=== PATIENT | female | born 1955 | race African-American/Black ===

== ENCOUNTER 2017-10-13 12:40 | Outpatient (CLI) | payer OTHER ==
--- NOTE | 2017-10-23 14:08 | MMO ---
BILATERAL SCREENING MAMMOGRAM: Date: 10/13/17 HISTORY: Screening. COMPARISON: Mammograms from 2017 and 2014. TECHNIQUE: Bilateral screening CC and MLO mammograms. This patient's mammogram was interpreted with the assistance of computer-aided detection. FINDINGS: No suspicious mass, architectural distortion, or microcalcifications. Benign calcifications. IMPRESSION: BIRADS 2: Benign Finding(s) Continued annual mammographic screening is recommended. POS: DESIREE
== END 2017-10-13 12:41 | disposition home or self-care (01) ==
LOC: SCSMAMMO 12:40
PROVIDERS: ATTEND Family Medicine
DX: Z12.31 Encounter for screening mammogram for malignant neoplasm of breast (principal)
CPT/HCPCS: 77067

== ENCOUNTER → 2018-01-14 | Day surgery (SDC) | payer OTHER ==
[2018-01-13 09:21] VITALS: BMI 41.3
[~2018-01-14] MED LIST: CEFAZOLIN/Water 2 GM/20 ML SYRINGE ONE; Dexamethasone 20 MG/5 ML VIAL ONE; Fentanyl 100 MCG/2 ML VIAL IV PRN; Fentanyl 100 MCG/2 ML VIAL ONE; HYDROcodone/Acetaminophen 7.5/325 mg Tablet PO PRN; Lidocaine 1% (PF) 30 ML VIAL ONE; Midazolam HCl 2 mg/2 ml Vial ONE; Ondansetron HCl/PF 4 MG/2 ML Vial IVP PRN; Ondansetron HCl/PF 4 MG/2 ML Vial ONE; PHENYLEPHRINE-NS 100 MCG/ML 10 ML SYRINGE ONE; PROPOFOL 200 MG/20 ML VIAL ONE; Promethazine HCl 25 MG/ML VIAL IM PRN; Promethazine HCl 25 MG/ML VIAL ONE; Ropivacaine HCl/PF 1,100 MG in Sodium Chloride 0.9% 440 ML NERVE BLCK SCH; Zolpidem Tartrate 5 MG TAB PO PRN; traMADol HCl 50 MG TAB PO PRN
[2018-01-14 08:17] LABS: #Basophils 0.1 thou/uL (0.0-0.2); #Eosinphils 0.2 thou/uL (0.0-0.7); #Lymphocytes 1.6 thou/uL (1.20-3.40); #Monocytes 0.5 thou/uL (0.11-0.59); #Neutrophils 4.2 thou/uL (1.40-6.50); %Basophils 0.8 % (0.0-1.0); %Eosinophils 3.4 % (0.0-10.0); %Lymphocytes 24.2 % (21.0-51.0); %Monocytes 7.6 % (0.0-10.0); %Neutrophils 64.1 % (42.0-75.0); Hemoglobin 11.9 g/dL (12.0-16.0); Mean Corpuscular HGB CONC 33.3 g/dL (32.0-36.0); Mean Corpuscular Hemoglobin 30.8 pg (27.0-31.0); Mean Corpuscular Volume 92.6 fl (81.0-99.0); Mean Platelet Volume 7.7 fL (7.4-10.4); Platelet Count 285 thou/uL (130-400); RBC Distribution Width 11.6 % (11.5-14.5); Red Blood Cell (RBC) Count 3.86 mill/uL (4.20-5.40); White Blood Cell (WBC) Count 6.6 thou/uL (4.8-10.8)
[2018-01-14 08:28] LABS: Anion Gap 7 mmol/L (10-20); BUN (Urea Nitrogen) 16 mg/dL (9.8-20.1); Calc. Creatinine Clearance 123 mL/min (70-130); Calcium 9.2 mg/dL (7.8-10.44); Carbon Dioxide 30 mmol/L (23-31); Chloride 105 mmol/L (98-107); Estimated GFR-MDRD 87; Glucose 108 mg/dL (80-115); Potassium 4.1 mmol/L (3.5-5.1); Sodium 138 mmol/L (136-145)
--- NOTE | 2018-01-14 11:53 | OP ---
DATE OF OPERATION: 01/14/2018 OPERATION: Open reduction and internal fixation of right distal radius fracture. PREOPERATIVE DIAGNOSIS: Right comminuted and displaced distal radius fracture. POSTOPERATIVE DIAGNOSIS: Right comminuted and displaced distal radius fracture. COMPLICATIONS: None. ESTIMATED BLOOD LOSS: Minimal. SURGEON: Jean Carlos Juárez M.D. ANESTHESIA: General plus regional. PLANT QUALITY MANAGER: Juan Griffith PA-C. IMPLANTS: Synthes variable angle distal radius plate with multiple locking and nonlocking screws. INDICATIONS: Ms. Lopez is a 62-year-old female who fractured her right distal radius. She fell d isplacing her radius significantly. She was indicated for open reduction and internal fixation to re store anatomic alignment of the radius and restore function of the wrist. Risks have been reviewed i n detail and she has elected to proceed. DESCRIPTION OF PROCEDURE: Ms. Lopez was identified in the preoperative holding area. Her correct extremity was marked. She was carried to the operating room. She was positioned supine. General a nesthesia was induced. A multidisciplinary timeout was performed. The right upper extremity was pre pped and draped in sterile fashion. We began the procedure with opening the volar aspect of the wrist. We performed an FCR approach to t he radius. We opened the FCR tendon sheath and then opened the deep aspect of the sheath. We retrac zandra the tendon. At this point, we evaluated the pronator quadratus muscle. Muscle was elevated from the distal radius bone. At this point, we exposed the underlying fracture. We then used a [place] el evator to reduce the fracture into its anatomic position. At this point, we applied a Synthes distal radius plate. We took x-ray images confirming plate placement. We placed multiple locking and nonl ocking screws, taking x-ray images throughout this procedure. Once we had all hardware placed, we to ok final images. We then thoroughly irrigated with copious lavage. We then closed in layers appropr iately and placed a well-padded splint. The patient was taken to the recovery room in good condition without complication at this point.
--- NOTE | 2018-01-14 13:27 | RAD ---
RADIOGRAPH RIGHT FOREARM 3 VIEWS: DTAE: 01/14/18. HISTORY: A 62-year-old female with fracture of the distal radius. TECHNIQUE: These are actually 3 views of the wrist, rather than the forearm as entered into the system. These a re fluoroscopic spot images obtained in the OR. COMPARISON: 01/07/18. FINDINGS: The previously demonstrated dorsal angulation of the distal radial fragment has been reduced, and the alignment is now nearly anatomical. There has been interval placement of a volar metallic plate ext ending from the distal diaphysis to the distal epiphysis, fixated to the radius by multiple screws. IMPRESSION: Status post open reduction internal fixation of the distal radial Colles fracture. POS: OFF
--- NOTE | 2018-01-14 20:33 | EKG ---
Test Reason : PREOP Blood Pressure : / mmHG Vent. Rate : 066 BPM Atrial Rate : 066 BPM P-R Int : 152 ms QRS Dur : 076 ms QT Int : 400 ms P-R-T Axes : 059 008 020 degrees QTc Int : 419 ms Normal sinus rhythm Normal ECG No previous ECGs available Confirmed by [facility], DR. Castellanos ([id number]) on 01/14/2018 8:33:29 PM Referred By: BORIS Confirmed By:DR. Emanuel MATUTE MD
== END ==
LOC: SDC 06:55
PROVIDERS: ATTEND Orthopaedic Surgery
PROC: 0PSH04Z Reposition Right Radius with Internal Fixation Device, Open Approach (ICD-10-PCS; principal; 2018-01-14)
DX: S52.501A Unspecified fracture of the lower end of right radius, initial encounter for closed fracture (principal); E78.5 Hyperlipidemia, unspecified; E03.9 Hypothyroidism, unspecified; Z88.5 Allergy status to narcotic agent
CPT/HCPCS: 36415; 76000; 80048; 85025; 93005; 93010; 96374; C1713; J2001; J2250; J2550; J3010; J7050

== ENCOUNTER 2018-10-14 10:41 | Outpatient (CLI) | payer MEDICARE ==
--- NOTE | 2018-10-14 12:20 | MMO ---
BILATERAL MAMMOGRAMS: DATE: 10/14/18 HISTORY: Screening mammography. COMPARISON: Multiple exams back to 10/13/17. FINDINGS: Scattered fibroglandular densities and benign-appearing calcifications. No dominant mass or suspiciou s calcifications. The study was evaluated with the assistance of computer-aided detection. IMPRESSION: BIRADS 1: Negative Suggest routine follow-up. POS: DESIREE
== END 2018-10-14 10:42 | disposition home or self-care (01) ==
LOC: SCSMAMMO 10:41
PROVIDERS: ATTEND Family Medicine
DX: Z12.31 Encounter for screening mammogram for malignant neoplasm of breast (principal)
CPT/HCPCS: 77067

== ENCOUNTER 2023-08-11 01:07 | Inpatient (IN) | payer MEDICARE ==
[2023-08-11] MEDS ORDERED: traMADol HCl 50 MG TAB PO PRN (02:30)
[2023-08-11] MEDS ORDERED: Ondansetron ODT 4 MG TAB PO PRN (02:30)
[2023-08-11] MEDS ORDERED: hydrALAZINE 20 MG/ML VIAL SLOW IVP PRN (02:30)
[2023-08-11] MEDS ORDERED: TETANUS, DIPHTHERIA TOX,ADULT (TDVAX) 0.5 ML VIAL IM ONE (02:30)
[2023-08-11] MEDS ORDERED: Acetaminophen 325 MG TAB PO PRN (02:30)
[2023-08-11] MEDS ORDERED: Electrolyte Replacement Protocol FS SCH (02:45)
[2023-08-11] MEDS: Sodium Chloride 0.9% 1,000 ML IV SCH ×2 (04:36→14:59)
[2023-08-11 04:58] VITALS: BMI 37.1
[2023-08-11 05:33] LABS: #Eosinphils 0.1 thou/uL (0.0-0.7); #Monocytes 0.5 thou/uL (0.11-0.59); #Neutrophils 4.5 thou/uL (1.40-6.50); %Basophils 0.5 % (0.0-1.0); %Lymphocytes 13.9 % (21.0-51.0); %Monocytes 8.4 % (0.0-10.0); %Neutrophils 74.7 % (42.0-75.0); Hematocrit 37.5 % (36.0-47.0); Hemoglobin 11.8 g/dL (12.0-16.0); Mean Corpuscular HGB CONC 31.5 g/dL (32.0-36.0); Mean Corpuscular Hemoglobin 28.9 pg (27.0-31.0); Mean Corpuscular Volume 91.9 fl (78.0-98.0); Mean Platelet Volume 9.8 fL (7.4-10.4); Platelet Count 267 10x3/uL (130-400); RBC Distribution Width 12.7 % (11.5-14.5); Red Blood Cell (RBC) Count 4.08 mill/uL (4.20-5.40); White Blood Cell (WBC) Count 6.1 10x3/uL (4.8-10.8)
[2023-08-11 05:55] LABS: Phosphorus 3.1 mg/dL (2.3-4.7)
[2023-08-11 05:56] LABS: Anion Gap 13 mmol/L (10-20); BUN (Urea Nitrogen) 12 mg/dL (9.8-20.1); Calc. Creatinine Clearance 105 mL/min (70-130); Carbon Dioxide 26 mmol/L (23-31); Chloride 104 mmol/L (98-107); Estimated GFR 83; Glucose 102 mg/dL (80-115); Magnesium 1.9 mg/dL (1.6-2.6); Potassium 3.5 mmol/L (3.5-5.1); Sodium 139 mmol/L (136-145)
[2023-08-11] MEDS: Levothyroxine Sodium 88 MCG TAB PO SCH (06:06)
[2023-08-11] MEDS ORDERED: Potassium Chloride 20 MEQ TAB PO SCH (08:00)
[2023-08-11] MEDS ORDERED: Magnesium 2 GM/50 ML(in water) 2 GM in Premix 1 BAG IVPB SCH (08:00)
[2023-08-11] MEDS: Hydrochlorothiazide 25 MG TAB PO SCH (08:22)
[2023-08-12] MEDS: Simvastatin 5 MG TAB PO SCH ×3 (00:20→20:41)
[2023-08-12] MEDS: Sodium Chloride 0.9% 1,000 ML IV SCH ×4 (00:21→23:44)
[2023-08-12] MEDS: Levothyroxine Sodium 88 MCG TAB PO SCH (05:56)
[2023-08-12 07:29] LABS: Bacteria/HPF 2+ HPF (None Seen); Bilirubin Negative (Negative); Blood, Urine Trace (Negative); Clarity Turbid (Clear); Glucose, Urine (Dipstick) Normal (Negative); Ketone, Urine 20 mg/dL (Negative); Leukocyte 500 Leu/uL (Negative); Nitrite Negative (Negative); Protein, Urine (Dipstick) Negative (Neg-Trace); Specific Gravity, Urine 1.018 (1.002-1.036); Urobilinogen Normal mg/dL (Less than 2); WBC/HPF Greater than 50 HPF (0-3); pH, Urine 5.5 (5.0-9.0)
[2023-08-12] MEDS ORDERED: MD-Gastroview 120 ML BOT ONE ×2 (08:10→11:11)
[2023-08-12 08:38] LABS: #Eosinphils 0.1 thou/uL (0.0-0.7); #Monocytes 0.5 thou/uL (0.11-0.59); #Neutrophils 3.5 thou/uL (1.40-6.50); %Basophils 0.4 % (0.0-1.0); %Eosinophils 2.4 % (0.0-10.0); %Monocytes 9.9 % (0.0-10.0); %Neutrophils 71.9 % (42.0-75.0); Hematocrit 33.8 % (36.0-47.0); Hemoglobin 10.7 g/dL (12.0-16.0); Mean Corpuscular HGB CONC 31.7 g/dL (32.0-36.0); Mean Corpuscular Hemoglobin 29.4 pg (27.0-31.0); Mean Corpuscular Volume 92.9 fl (78.0-98.0); Mean Platelet Volume 9.1 fL (7.4-10.4); Platelet Count 258 10x3/uL (130-400); RBC Distribution Width 12.7 % (11.5-14.5); Red Blood Cell (RBC) Count 3.64 mill/uL (4.20-5.40); White Blood Cell (WBC) Count 4.9 10x3/uL (4.8-10.8)
[2023-08-12 08:49] LABS: Anion Gap 12 mmol/L (10-20); BUN (Urea Nitrogen) 9 mg/dL (9.8-20.1); Calc. Creatinine Clearance 110 mL/min (70-130); Calcium 8.8 mg/dL (7.8-10.44); Carbon Dioxide 25 mmol/L (23-31); Chloride 107 mmol/L (98-107); Estimated GFR 87; Glucose 78 mg/dL (80-115); Potassium 3.8 mmol/L (3.5-5.1); Sodium 140 mmol/L (136-145)
[2023-08-12] MEDS: Hydrochlorothiazide 25 MG TAB PO SCH ×2 (11:12→11:40)
[2023-08-12] MEDS: cefTRIAXone\\ROCEPHIN 1 GM in Sodium Chloride 0.9% 100 ML IVPB SCH (11:56)
[2023-08-12] MEDS: Ketorolac Tromethamine 30 MG (1 mL) VIAL IVP SCH ×3 (11:57→23:44)
[2023-08-13] MEDS: Ketorolac Tromethamine 30 MG (1 mL) VIAL IVP SCH ×2 (05:35→19:28)
[2023-08-13] MEDS: Levothyroxine Sodium 88 MCG TAB PO SCH (05:35)
[2023-08-13] MEDS: Sodium Chloride 0.9% 1,000 ML IV SCH ×2 (05:36→17:19)
[2023-08-13] MEDS: cefTRIAXone\\ROCEPHIN 1 GM in Sodium Chloride 0.9% 100 ML IVPB SCH (08:31)
[2023-08-13] MEDS: Hydrochlorothiazide 25 MG TAB PO SCH (08:31)
[2023-08-13] MEDS ORDERED: Pantoprazole 40 MG VIAL IVP SCH (09:00)
[2023-08-13] MEDS ORDERED: GoLYTELY 4,000 ml Bottle PO SCH (13:15)
[2023-08-13] MEDS ORDERED: Ketorolac Tromethamine 30 MG (1 mL) VIAL IVP PRN (18:00)
[2023-08-13] MEDS: Ondansetron PF 4 MG/2 ML Vial IVP PRN (19:59)
[2023-08-13] MEDS: Simvastatin 5 MG TAB PO SCH (20:15)
[2023-08-13] MEDS ORDERED: Morphine 2 MG/ML VIAL SLOW IVP PRN (21:22)
[2023-08-13] MEDS ORDERED: Scopolamine 1 mg/72 hour Patch TD SCH (22:00)
[2023-08-14] MEDS: Levothyroxine Sodium 88 MCG TAB PO SCH (05:10)
[2023-08-14] MEDS: Sodium Chloride 0.9% 1,000 ML IV SCH (05:44)
[2023-08-14] MEDS ORDERED: Acetaminophen 325 MG TAB PO SCH (06:00)
[2023-08-14] MEDS ORDERED: fentaNYL 50 mcg/mL 1 mL Vial SLOW IVP SCH (06:45)
[2023-08-14 07:26] LABS: #Eosinphils 0.1 thou/uL (0.0-0.7); #Monocytes 0.4 thou/uL (0.11-0.59); #Neutrophils 4.5 thou/uL (1.40-6.50); %Basophils 0.5 % (0.0-1.0); %Eosinophils 2.4 % (0.0-10.0); %Monocytes 7.2 % (0.0-10.0); %Neutrophils 77.6 % (42.0-75.0); Hematocrit 36.5 % (36.0-47.0); Hemoglobin 11.6 g/dL (12.0-16.0); Mean Corpuscular HGB CONC 31.8 g/dL (32.0-36.0); Mean Corpuscular Hemoglobin 29.3 pg (27.0-31.0); Mean Corpuscular Volume 92.2 fl (78.0-98.0); Mean Platelet Volume 9.9 fL (7.4-10.4); Platelet Count 304 10x3/uL (130-400); RBC Distribution Width 12.5 % (11.5-14.5); Red Blood Cell (RBC) Count 3.96 mill/uL (4.20-5.40); White Blood Cell (WBC) Count 5.8 10x3/uL (4.8-10.8)
[2023-08-14 07:47] LABS: INR-International Normal Ratio 1.2; PTT 31.4 sec (22.9-36.1); Prothrombin Time 15.5 sec (12.0-14.7)
[2023-08-14 07:52] LABS: Anion Gap 13 mmol/L (10-20); BUN (Urea Nitrogen) 8 mg/dL (9.8-20.1); Calc. Creatinine Clearance 116 mL/min (70-130); Carbon Dioxide 24 mmol/L (23-31); Chloride 104 mmol/L (98-107); Potassium 3.4 mmol/L (3.5-5.1); Sodium 138 mmol/L (136-145)
[2023-08-14 07:53] LABS: Calcium 8.9 mg/dL (7.8-10.44); Estimated GFR 93; Glucose 101 mg/dL (80-115); Magnesium 1.8 mg/dL (1.6-2.6); Phosphorus 2.9 mg/dL (2.3-4.7)
[2023-08-14] MEDS ORDERED: EPINEPHrine 1 MG/ML VIAL ONE (08:48)
[2023-08-14] MEDS ORDERED: Bupivacaine PF 0.5% 30 ML VIAL ONE (08:48)
[2023-08-14] MEDS: cefTRIAXone\\ROCEPHIN 1 GM in Sodium Chloride 0.9% 100 ML IVPB SCH (08:53)
[2023-08-14] MEDS: Hydrochlorothiazide 25 MG TAB PO SCH (08:54)
[2023-08-14] MEDS ORDERED: Ketorolac Tromethamine 30 MG (1 mL) VIAL IVP PRN ×2 (09:21→14:05)
[2023-08-14] MEDS ORDERED: PROPOFOL 20 ML ONE (09:25)
[2023-08-14] MEDS ORDERED: Magnesium 2 GM/50 ML(in water) 2 GM in Premix 1 BAG IVPB SCH ×3 (09:30→16:00)
[2023-08-14] MEDS ORDERED: cefOXitin 2 GM in Sodium Chloride 0.9% 100 ML IVPB SCH (09:30)
[2023-08-14] MEDS ORDERED: Bupivacaine 0.25% HCL 30 ML VIAL ONE (09:43)
[2023-08-14] MEDS ORDERED: Potassium Chloride 20 MEQ in Premix 1 BAG IVPB SCH (10:00)
[2023-08-14] MEDS ORDERED: fentaNYL PF 100 MCG/2 ML SYRINGE ONE ×2 (10:19→11:12)
[2023-08-14] MEDS ORDERED: SUCCINYLCHOLINE/SOD CL,ISO/PF 200 MG/10 ML SYRINGE FS ONE (10:20)
[2023-08-14] MEDS ORDERED: ePHEDrine Sulfate 50 MG/10 ML VIAL ONE (10:20)
[2023-08-14] MEDS ORDERED: Rocuronium Bromide 10 MG/ML (10ML VIAL) ONE (10:42)
[2023-08-14] MEDS ORDERED: Lidocaine 1% PF 5 ML VIAL ONE (10:42)
[2023-08-14] MEDS ORDERED: Dexmedetomidine 200 MCG/2 ML VIAL ONE (11:33)
[2023-08-14] MEDS ORDERED: Ondansetron PF 4 MG/2 ML Vial ONE (12:27)
[2023-08-14] MEDS ORDERED: Dexamethasone 4 mg/ml Vial ONE (12:27)
[2023-08-14] MEDS ORDERED: SUGAMMADEX SODIUM 200 MG/2 ML VIAL ONE (12:29)
[2023-08-14] MEDS ORDERED: HYDROmorphone 2 MG/ML VIAL SLOW IVP PRN (13:37)
[2023-08-14] MEDS ORDERED: Ondansetron HCl/PF 4 MG/2 ML Vial IVP PRN (13:37)
[2023-08-14] MEDS ORDERED: Meperidine HCl/PF 25 MG/ML VIAL SLOW IVP PRN (13:37)
[2023-08-14] MEDS ORDERED: Promethazine HCl 25 MG/ML VIAL IM PRN (13:37)
[2023-08-14] MEDS ORDERED: HYDROmorphone 0.5 MG/0.5 ML SYRINGE ONE (13:54)
[2023-08-14] MEDS ORDERED: fentaNYL 50 mcg/mL 1 mL Vial ONE (14:09)
[2023-08-14] MEDS ORDERED: Ketorolac Tromethamine 30 MG (1 mL) VIAL IVP SCH (14:30)
[2023-08-14] MEDS: Potassium Chloride 20 MEQ in Premix 1 BAG IVPB SCH ×4 (15:32→20:50)
[2023-08-14] MEDS: Ketorolac Tromethamine 30 MG (1 mL) VIAL IVP SCH (20:46)
[2023-08-14] MEDS: Fentanyl 100 MCG/2 ML VIAL SLOW IVP PRN (20:49)
[2023-08-14] MEDS: Ondansetron PF 4 MG/2 ML Vial IVP PRN (20:50)
[2023-08-14] MEDS: Enoxaparin 40 MG (0.4 mL) SYRINGE SC SCH (20:50)
[2023-08-14] MEDS: Simvastatin 5 MG TAB PO SCH (21:46)
[2023-08-15] MEDS: Fentanyl 100 MCG/2 ML VIAL SLOW IVP PRN ×4 (01:50→11:07)
[2023-08-15] MEDS: Ketorolac Tromethamine 30 MG (1 mL) VIAL IVP SCH ×4 (01:50→20:19)
[2023-08-15] MEDS: Levothyroxine Sodium 88 MCG TAB PO SCH (05:23)
[2023-08-15 05:43] LABS: #Monocytes 0.5 thou/uL (0.11-0.59); #Neutrophils 7.9 thou/uL (1.40-6.50); %Basophils 0.2 % (0.0-1.0); %Eosinophils 0.1 % (0.0-10.0); %Lymphocytes 6.3 % (21.0-51.0); %Monocytes 5.9 % (0.0-10.0); %Neutrophils 87.2 % (42.0-75.0); Hemoglobin 10.8 g/dL (12.0-16.0); Mean Corpuscular HGB CONC 31.8 g/dL (32.0-36.0); Mean Corpuscular Hemoglobin 29.3 pg (27.0-31.0); Mean Corpuscular Volume 92.1 fl (78.0-98.0); Mean Platelet Volume 9.6 fL (7.4-10.4); Platelet Count 272 10x3/uL (130-400); RBC Distribution Width 12.9 % (11.5-14.5); Red Blood Cell (RBC) Count 3.69 mill/uL (4.20-5.40); White Blood Cell (WBC) Count 9.1 10x3/uL (4.8-10.8)
[2023-08-15 06:05] LABS: ALT (SGPT) 12 U/L (8-55); AST (SGOT) 19 U/L (5-34); Albumin 2.9 g/dL (3.4-4.8); Alkaline Phosphatase 42 U/L (40-110); Anion Gap 11 mmol/L (10-20); BUN (Urea Nitrogen) 9 mg/dL (9.8-20.1); Bilirubin, Total 0.5 mg/dL (0.2-1.2); Calc. Creatinine Clearance 104 mL/min (70-130); Calcium 8.4 mg/dL (7.8-10.44); Carbon Dioxide 24 mmol/L (23-31); Chloride 105 mmol/L (98-107); Estimated GFR 82; Globulin 2.8 g/dL (2.4-3.5); Glucose 119 mg/dL (80-115); Potassium 4.3 mmol/L (3.5-5.1); Protein, Total 5.7 g/dL (5.8-8.1); Sodium 136 mmol/L (136-145)
[2023-08-15] MEDS: Pantoprazole 40 MG VIAL IVP SCH (08:50)
[2023-08-15] MEDS ORDERED: Cyclobenzaprine 10 MG TAB PO PRN (13:35)
[2023-08-15] MEDS: Acetaminophen/Codeine 30-300mg Tablet PO SCH ×2 (13:54→20:20)
[2023-08-15] MEDS: Scopolamine 1 mg/72 hour Patch TD SCH (14:04)
[2023-08-15] MEDS: Simvastatin 5 MG TAB PO SCH (20:19)
[2023-08-15] MEDS: Enoxaparin 40 MG (0.4 mL) SYRINGE SC SCH (20:19)
[2023-08-16] MEDS: Acetaminophen/Codeine 30-300mg Tablet PO SCH ×4 (01:39→20:48)
[2023-08-16] MEDS: Ketorolac Tromethamine 30 MG (1 mL) VIAL IVP SCH ×4 (01:40→20:48)
[2023-08-16] MEDS: Levothyroxine Sodium 88 MCG TAB PO SCH (05:54)
[2023-08-16 07:39] LABS: ALT (SGPT) 10 U/L (8-55); AST (SGOT) 19 U/L (5-34); Albumin 2.7 g/dL (3.4-4.8); Alkaline Phosphatase 46 U/L (40-110); Anion Gap 11 mmol/L (10-20); BUN (Urea Nitrogen) 8 mg/dL (9.8-20.1); Bilirubin, Total 0.6 mg/dL (0.2-1.2); Calc. Creatinine Clearance 105 mL/min (70-130); Calcium 8.6 mg/dL (7.8-10.44); Carbon Dioxide 24 mmol/L (23-31); Chloride 106 mmol/L (98-107); Estimated GFR 83; Globulin 2.7 g/dL (2.4-3.5); Glucose 77 mg/dL (80-115); Potassium 4.6 mmol/L (3.5-5.1); Protein, Total 5.4 g/dL (5.8-8.1); Sodium 136 mmol/L (136-145)
[2023-08-16 07:42] LABS: Phosphorus 2.4 mg/dL (2.3-4.7)
[2023-08-16] MEDS: Pantoprazole 40 MG VIAL IVP SCH (08:54)
[2023-08-16 12:56] LABS: #Eosinphils 0.1 thou/uL (0.0-0.7); #Monocytes 0.6 thou/uL (0.11-0.59); #Neutrophils 10.4 thou/uL (1.40-6.50); %Basophils 0.2 % (0.0-1.0); %Lymphocytes 6.1 % (21.0-51.0); %Monocytes 4.6 % (0.0-10.0); %Neutrophils 87.4 % (42.0-75.0); Hematocrit 32.2 % (36.0-47.0); Hemoglobin 10.2 g/dL (12.0-16.0); Mean Corpuscular HGB CONC 31.7 g/dL (32.0-36.0); Mean Corpuscular Hemoglobin 29.6 pg (27.0-31.0); Mean Corpuscular Volume 93.3 fl (78.0-98.0); Mean Platelet Volume 9.5 fL (7.4-10.4); Platelet Count 256 10x3/uL (130-400); RBC Distribution Width 13.2 % (11.5-14.5); Red Blood Cell (RBC) Count 3.45 mill/uL (4.20-5.40); White Blood Cell (WBC) Count 11.8 10x3/uL (4.8-10.8)
[2023-08-16 13:17] LABS: Anion Gap 13 mmol/L (10-20); BUN (Urea Nitrogen) 9 mg/dL (9.8-20.1); Calc. Creatinine Clearance 99 mL/min (70-130); Carbon Dioxide 23 mmol/L (23-31); Chloride 106 mmol/L (98-107); Estimated GFR 77; Glucose 90 mg/dL (80-115); Potassium 4.7 mmol/L (3.5-5.1); Sodium 137 mmol/L (136-145)
[2023-08-16] MEDS: Simvastatin 5 MG TAB PO SCH (20:47)
[2023-08-16] MEDS: Enoxaparin 40 MG (0.4 mL) SYRINGE SC SCH (20:49)
[2023-08-17] MEDS: Acetaminophen/Codeine 30-300mg Tablet PO SCH ×4 (01:55→20:22)
[2023-08-17] MEDS: Ketorolac Tromethamine 30 MG (1 mL) VIAL IVP SCH ×4 (01:56→20:25)
[2023-08-17] MEDS: Levothyroxine Sodium 88 MCG TAB PO SCH (05:02)
[2023-08-17 08:21] LABS: #Basophils 0.1 thou/uL (0.0-0.2); #Eosinphils 0.2 thou/uL (0.0-0.7); #Monocytes 0.9 thou/uL (0.11-0.59); #Neutrophils 11.1 thou/uL (1.40-6.50); %Basophils 0.4 % (0.0-1.0); %Eosinophils 1.8 % (0.0-10.0); %Lymphocytes 5.6 % (21.0-51.0); %Monocytes 6.6 % (0.0-10.0); %Neutrophils 84.5 % (42.0-75.0); Hematocrit 36.9 % (36.0-47.0); Hemoglobin 11.8 g/dL (12.0-16.0); Mean Corpuscular Volume 90.7 fl (78.0-98.0); Mean Platelet Volume 10.6 fL (7.4-10.4); RBC Distribution Width 13.1 % (11.5-14.5); Red Blood Cell (RBC) Count 4.07 mill/uL (4.20-5.40); White Blood Cell (WBC) Count 13.1 10x3/uL (4.8-10.8)
[2023-08-17 08:23] LABS: Platelet Count 216 10x3/uL (130-400)
[2023-08-17] MEDS: Pantoprazole 40 MG VIAL IVP SCH (08:24)
[2023-08-17] MEDS ORDERED: cefTRIAXone\\ROCEPHIN 1 GM in Sodium Chloride 0.9% 100 ML IVPB SCH (09:00)
[2023-08-17 11:39] LABS: Band 4 % (5-11); Eosinophils 4 % (0-10); Lymphocytes 3 % (21-51); Monocytes 11 % (0-10); Neutrophil 77 % (42-75)
[2023-08-17 11:41] LABS: Large Platelets SLIGHT (None Seen); RBC Morph Comment Within Normal Limits; Vacuoles SLIGHT
[2023-08-17 11:42] LABS: RBC Morphology Within Normal Limits
[2023-08-17] MEDS: Simvastatin 5 MG TAB PO SCH (20:24)
[2023-08-17] MEDS: Enoxaparin 40 MG (0.4 mL) SYRINGE SC SCH (20:25)
[2023-08-18] MEDS: Acetaminophen/Codeine 30-300mg Tablet PO SCH ×4 (02:12→18:25)
[2023-08-18] MEDS: Ketorolac Tromethamine 30 MG (1 mL) VIAL IVP SCH ×4 (03:28→20:34)
[2023-08-18] MEDS: Levothyroxine Sodium 88 MCG TAB PO SCH (05:16)
[2023-08-18] MEDS: Pantoprazole 40 MG VIAL IVP SCH (08:29)
[2023-08-18] MEDS: Scopolamine 1 mg/72 hour Patch TD SCH (08:30)
[2023-08-18] MEDS: Ondansetron PF 4 MG/2 ML Vial IVP PRN (20:34)
[2023-08-18] MEDS: Simvastatin 5 MG TAB PO SCH (20:35)
[2023-08-18] MEDS: Enoxaparin 40 MG (0.4 mL) SYRINGE SC SCH (20:35)
[2023-08-19] MEDS: Acetaminophen/Codeine 30-300mg Tablet PO SCH ×2 (01:46→09:03)
[2023-08-19] MEDS: Ketorolac Tromethamine 30 MG (1 mL) VIAL IVP SCH ×3 (01:46→16:36)
[2023-08-19] MEDS: Levothyroxine Sodium 88 MCG TAB PO SCH (05:14)
[2023-08-19 06:59] LABS: #Eosinphils 0.1 thou/uL (0.0-0.7); #Monocytes 0.9 thou/uL (0.11-0.59); #Neutrophils 7.7 thou/uL (1.40-6.50); %Basophils 0.3 % (0.0-1.0); %Eosinophils 1.4 % (0.0-10.0); %Lymphocytes 7.6 % (21.0-51.0); %Monocytes 9.2 % (0.0-10.0); %Neutrophils 80.8 % (42.0-75.0); Hematocrit 27.9 % (36.0-47.0); Hemoglobin 8.9 g/dL (12.0-16.0); Mean Corpuscular HGB CONC 31.9 g/dL (32.0-36.0); Mean Corpuscular Hemoglobin 28.5 pg (27.0-31.0); Mean Corpuscular Volume 89.4 fl (78.0-98.0); Mean Platelet Volume 9.6 fL (7.4-10.4); Platelet Count 367 10x3/uL (130-400); RBC Distribution Width 13.4 % (11.5-14.5); Red Blood Cell (RBC) Count 3.12 mill/uL (4.20-5.40); White Blood Cell (WBC) Count 9.5 10x3/uL (4.8-10.8)
[2023-08-19] MEDS: Pantoprazole 40 MG VIAL IVP SCH (09:07)
[2023-08-19] MEDS ORDERED: Acetaminophen 500 MG TAB PO SCH (12:00)
[2023-08-19] MEDS: Acetaminophen 500 MG TAB PO SCH ×2 (16:36→20:27)
[2023-08-19 16:48] LABS: Bacteria/HPF None Seen HPF (None Seen); Bilirubin Negative (Negative); Blood, Urine Negative (Negative); CAUTI Indications for Culture Pelvic or flank pain; Clarity Clear (Clear); Glucose, Urine (Dipstick) Normal (Negative); Ketone, Urine 100 mg/dL (Negative); Leukocyte Negative Leu/uL (Negative); Nitrite Negative (Negative); Protein, Urine (Dipstick) 30 mg/dL (Neg-Trace); RBC/HPF 0-3 HPF (0-3); Specific Gravity, Urine 1.029 (1.002-1.036); Urobilinogen Normal mg/dL (Less than 2); WBC/HPF 0-3 HPF (0-3); pH, Urine 5.5 (5.0-9.0)
[2023-08-19 16:55] LABS: Urine Culture Reflex No No
[2023-08-19] MEDS: Morphine 4 MG/ML VIAL SLOW IVP PRN (20:26)
[2023-08-19] MEDS: Ondansetron PF 4 MG/2 ML Vial IVP PRN (20:26)
[2023-08-19] MEDS: Enoxaparin 40 MG (0.4 mL) SYRINGE SC SCH (20:27)
[2023-08-20] MEDS: Levothyroxine Sodium 88 MCG TAB PO SCH (05:06)
[2023-08-20] MEDS: Morphine 4 MG/ML VIAL SLOW IVP PRN ×2 (05:06→12:24)
[2023-08-20] MEDS: Acetaminophen 500 MG TAB PO SCH ×4 (08:20→21:37)
[2023-08-20] MEDS: Pantoprazole 40 MG VIAL IVP SCH (08:21)
[2023-08-20 08:52] LABS: #Eosinphils 0.1 thou/uL (0.0-0.7); #Monocytes 0.7 thou/uL (0.11-0.59); #Neutrophils 7.5 thou/uL (1.40-6.50); %Basophils 0.4 % (0.0-1.0); %Eosinophils 1.2 % (0.0-10.0); %Lymphocytes 6.6 % (21.0-51.0); %Monocytes 7.8 % (0.0-10.0); %Neutrophils 82.7 % (42.0-75.0); Hematocrit 30.8 % (36.0-47.0); Hemoglobin 9.9 g/dL (12.0-16.0); Mean Corpuscular HGB CONC 32.1 g/dL (32.0-36.0); Mean Corpuscular Hemoglobin 28.8 pg (27.0-31.0); Mean Corpuscular Volume 89.5 fl (78.0-98.0); Mean Platelet Volume 9.7 fL (7.4-10.4); Platelet Count 451 10x3/uL (130-400); RBC Distribution Width 13.4 % (11.5-14.5); Red Blood Cell (RBC) Count 3.44 mill/uL (4.20-5.40); White Blood Cell (WBC) Count 9.1 10x3/uL (4.8-10.8)
[2023-08-20] MEDS: Ketorolac Tromethamine 30 MG (1 mL) VIAL IVP PRN (17:19)
[2023-08-20] MEDS: Enoxaparin 40 MG (0.4 mL) SYRINGE SC SCH (21:37)
[2023-08-20] MEDS: Fentanyl 100 MCG/2 ML VIAL SLOW IVP PRN (21:38)
[2023-08-20] MEDS: Ondansetron PF 4 MG/2 ML Vial IVP PRN (21:40)
[2023-08-21] MEDS: Ondansetron PF 4 MG/2 ML Vial IVP PRN ×2 (05:15→16:11)
[2023-08-21] MEDS ORDERED: Promethazine HCl 25 MG/ML VIAL IM PRN (08:18)
[2023-08-21 09:18] LABS: ALT (SGPT) 14 U/L (8-55); AST (SGOT) 19 U/L (5-34); Albumin 3.1 g/dL (3.4-4.8); Alkaline Phosphatase 68 U/L (40-110); Anion Gap 15 mmol/L (10-20); BUN (Urea Nitrogen) 10 mg/dL (9.8-20.1); Bilirubin, Total 0.5 mg/dL (0.2-1.2); Calc. Creatinine Clearance 111 mL/min (70-130); Calcium 9.1 mg/dL (7.8-10.44); Carbon Dioxide 24 mmol/L (23-31); Chloride 101 mmol/L (98-107); Estimated GFR 88; Globulin 3.5 g/dL (2.4-3.5); Glucose 96 mg/dL (80-115); Magnesium 1.9 mg/dL (1.6-2.6); Phosphorus 3.7 mg/dL (2.3-4.7); Potassium 3.8 mmol/L (3.5-5.1); Protein, Total 6.6 g/dL (5.8-8.1); Sodium 136 mmol/L (136-145)
[2023-08-21] MEDS: Ketorolac Tromethamine 30 MG (1 mL) VIAL IVP PRN ×3 (10:34→23:53)
[2023-08-21] MEDS ORDERED: Prochlorperazine 10 MG/2 ML VIAL IM PRN (10:50)
[2023-08-21] MEDS: Amino Acids 4.25 %/Dextrose 5% 1,000 ML IV SCH ×2 (11:57→19:00)
[2023-08-21] MEDS: Levothyroxine Sodium 88 MCG TAB PO SCH (11:58)
[2023-08-21] MEDS ORDERED: Prochlorperazine Edisylate 10 MG in Sodium Chloride 0.9% 50 ML IVPB SCH (12:00)
[2023-08-21] MEDS: Fentanyl 100 MCG/2 ML VIAL SLOW IVP PRN (13:40)
[2023-08-21] MEDS ORDERED: Lidocaine 1% PF 5 ML VIAL ONE (14:13)
[2023-08-21] MEDS ORDERED: Sodium Bicarbonate 2.5 MEQ/5 ML SDV ONE ×2 (14:13→14:15)
[2023-08-21] MEDS: Scopolamine 1 mg/72 hour Patch TD SCH (16:11)
[2023-08-21] MEDS: Acetaminophen 500 MG TAB PO SCH ×3 (16:23→21:18)
[2023-08-21] MEDS ORDERED: Pantoprazole 40 MG VIAL IVP SCH (18:45)
[2023-08-21] MEDS: Lactated Ringer's 1,000 ML IV SCH (19:51)
[2023-08-21] MEDS: Enoxaparin 40 MG (0.4 mL) SYRINGE SC SCH (20:58)
[2023-08-21] MEDS: Prochlorperazine 10 MG/2 ML VIAL IVP PRN (23:53)
[2023-08-22] MEDS: Amino Acids 4.25 %/Dextrose 5% 1,000 ML IV SCH ×2 (01:32→09:53)
[2023-08-22] MEDS: Levothyroxine Sodium 88 MCG TAB PO SCH (05:31)
[2023-08-22] MEDS: Ketorolac Tromethamine 30 MG (1 mL) VIAL IVP PRN ×3 (06:08→21:40)
[2023-08-22] MEDS: Prochlorperazine 10 MG/2 ML VIAL IVP PRN ×2 (06:08→21:41)
[2023-08-22] MEDS ORDERED: Pantoprazole 40 MG VIAL IVP SCH (09:00)
[2023-08-22] MEDS: Acetaminophen 500 MG TAB PO SCH ×4 (09:17→20:05)
[2023-08-22] MEDS: Pantoprazole 40 MG VIAL IVP SCH (09:18)
[2023-08-22] MEDS: Lactated Ringer's 1,000 ML IV SCH (09:19)
[2023-08-22] MEDS ORDERED: Multivitamins, Adult 10 ML, TRACE ELEMENT CONCENTRATE 1 ML in D15W-AA 5% with Lytes 2,0... IV SCH (14:00)
[2023-08-22] MEDS: Enoxaparin 40 MG (0.4 mL) SYRINGE SC SCH (21:39)
[2023-08-23] MEDS: Ketorolac Tromethamine 30 MG (1 mL) VIAL IVP PRN (03:39)
[2023-08-23 03:53] LABS: #Eosinphils 0.2 thou/uL (0.0-0.7); #Monocytes 0.8 thou/uL (0.11-0.59); #Neutrophils 6.7 thou/uL (1.40-6.50); %Basophils 0.2 % (0.0-1.0); %Eosinophils 2.1 % (0.0-10.0); %Lymphocytes 6.9 % (21.0-51.0); %Monocytes 9.7 % (0.0-10.0); %Neutrophils 77.8 % (42.0-75.0); Hematocrit 26.1 % (36.0-47.0); Hemoglobin 8.4 g/dL (12.0-16.0); Mean Corpuscular HGB CONC 32.2 g/dL (32.0-36.0); Mean Corpuscular Hemoglobin 29.1 pg (27.0-31.0); Mean Corpuscular Volume 90.3 fl (78.0-98.0); Mean Platelet Volume 8.9 fL (7.4-10.4); Platelet Count 501 10x3/uL (130-400); RBC Distribution Width 13.4 % (11.5-14.5); Red Blood Cell (RBC) Count 2.89 mill/uL (4.20-5.40); White Blood Cell (WBC) Count 8.7 10x3/uL (4.8-10.8)
[2023-08-23 04:20] LABS: Anion Gap 9 mmol/L (10-20); BUN (Urea Nitrogen) 12 mg/dL (9.8-20.1); Calc. Creatinine Clearance 156 mL/min (70-130); Calcium 8.5 mg/dL (7.8-10.44); Carbon Dioxide 28 mmol/L (23-31); Chloride 105 mmol/L (98-107); Estimated GFR 100; Glucose 116 mg/dL (80-115); Potassium 3.2 mmol/L (3.5-5.1); Sodium 139 mmol/L (136-145)
[2023-08-23] MEDS: Levothyroxine Sodium 88 MCG TAB PO SCH (05:32)
[2023-08-23] MEDS ORDERED: Potassium Chloride 20 MEQ TAB PO SCH (08:00)
[2023-08-23] MEDS ORDERED: Potassium Chloride 20 MEQ (100 mL) BAG IVPB SCH (08:00)
[2023-08-23] MEDS: Lactated Ringer's 1,000 ML IV SCH (09:38)
[2023-08-23] MEDS: Acetaminophen 500 MG TAB PO SCH ×4 (09:39→21:03)
[2023-08-23] MEDS: Pantoprazole 40 MG VIAL IVP SCH (09:40)
[2023-08-23] MEDS: Ondansetron PF 4 MG/2 ML Vial IVP PRN (09:51)
[2023-08-23] MEDS: Prochlorperazine 10 MG/2 ML VIAL IVP PRN (11:43)
[2023-08-23] MEDS: Metoclopramide HCl 10 MG (2 mL) VIAL IVP SCH ×2 (13:06→21:03)
[2023-08-23] MEDS: Multivitamins, Adult 10 ML, TRACE ELEMENT CONCENTRATE 1 ML in D15W-AA 5% with Lytes 2,0... IV SCH (13:59)
[2023-08-23] MEDS: Enoxaparin 40 MG (0.4 mL) SYRINGE SC SCH (21:04)
[2023-08-24] MEDS: Ketorolac Tromethamine 30 MG (1 mL) VIAL IVP PRN ×2 (03:02→21:08)
[2023-08-24] MEDS: Levothyroxine Sodium 88 MCG TAB PO SCH (05:21)
[2023-08-24] MEDS: Metoclopramide HCl 10 MG (2 mL) VIAL IVP SCH ×3 (05:22→20:51)
[2023-08-24 06:26] LABS: ALT (SGPT) 15 U/L (8-55); AST (SGOT) 19 U/L (5-34); Albumin 2.6 g/dL (3.4-4.8); Alkaline Phosphatase 49 U/L (40-110); Anion Gap 13 mmol/L (10-20); BUN (Urea Nitrogen) 13 mg/dL (9.8-20.1); Bilirubin, Total 0.4 mg/dL (0.2-1.2); Calc. Creatinine Clearance 133 mL/min (70-130); Calcium 8.3 mg/dL (7.8-10.44); Carbon Dioxide 26 mmol/L (23-31); Chloride 105 mmol/L (98-107); Estimated GFR 96; Glucose 115 mg/dL (80-115); Phosphorus 3.5 mg/dL (2.3-4.7); Potassium 3.6 mmol/L (3.5-5.1); Protein, Total 5.6 g/dL (5.8-8.1); Sodium 140 mmol/L (136-145)
[2023-08-24] MEDS: Lactated Ringer's 1,000 ML IV SCH ×2 (07:17→21:41)
[2023-08-24] MEDS: Acetaminophen 500 MG TAB PO SCH ×4 (08:36→20:50)
[2023-08-24] MEDS: Pantoprazole 40 MG VIAL IVP SCH (08:37)
[2023-08-24] MEDS: Scopolamine 1 mg/72 hour Patch TD SCH (14:14)
[2023-08-24] MEDS: Multivitamins, Adult 10 ML, TRACE ELEMENT CONCENTRATE 1 ML in D15W-AA 5% with Lytes 2,0... IV SCH (14:14)
[2023-08-24] MEDS: Enoxaparin 40 MG (0.4 mL) SYRINGE SC SCH (20:51)
[2023-08-25] MEDS: Metoclopramide HCl 10 MG (2 mL) VIAL IVP SCH ×3 (04:33→21:57)
[2023-08-25] MEDS: Levothyroxine Sodium 88 MCG TAB PO SCH (04:34)
[2023-08-25] MEDS: Lactated Ringer's 1,000 ML IV SCH (04:46)
[2023-08-25 05:47] LABS: ALT (SGPT) 19 U/L (8-55); AST (SGOT) 24 U/L (5-34); Albumin 2.6 g/dL (3.4-4.8); Alkaline Phosphatase 56 U/L (40-110); Anion Gap 9 mmol/L (10-20); BUN (Urea Nitrogen) 13 mg/dL (9.8-20.1); Bilirubin, Total 0.3 mg/dL (0.2-1.2); Calc. Creatinine Clearance 135 mL/min (70-130); Calcium 8.2 mg/dL (7.8-10.44); Carbon Dioxide 30 mmol/L (23-31); Chloride 104 mmol/L (98-107); Estimated GFR 97; Globulin 2.9 g/dL (2.4-3.5); Glucose 110 mg/dL (80-115); Magnesium 1.9 mg/dL (1.6-2.6); Phosphorus 3.6 mg/dL (2.3-4.7); Potassium 3.7 mmol/L (3.5-5.1); Protein, Total 5.5 g/dL (5.8-8.1); Sodium 139 mmol/L (136-145)
[2023-08-25] MEDS: Ketorolac Tromethamine 30 MG (1 mL) VIAL IVP PRN (05:47)
[2023-08-25] MEDS: Acetaminophen 500 MG TAB PO SCH ×3 (09:21→17:54)
[2023-08-25] MEDS: Pantoprazole 40 MG VIAL IVP SCH (09:22)
[2023-08-25] MEDS: fentaNYL 50 mcg/mL 1 mL Vial SLOW IVP PRN ×3 (12:04→21:57)
[2023-08-25] MEDS: Enoxaparin 40 MG (0.4 mL) SYRINGE SC SCH (21:58)
[2023-08-26] MEDS: TYLENOL 500 MG PO SCH ×5 (00:43→20:03)
[2023-08-26] MEDS: fentaNYL 50 mcg/mL 1 mL Vial SLOW IVP PRN ×2 (02:49→08:27)
[2023-08-26] MEDS: Levothyroxine Sodium 88 MCG TAB PO SCH (06:14)
[2023-08-26] MEDS: Metoclopramide HCl 10 MG (2 mL) VIAL IVP SCH ×3 (06:14→21:21)
[2023-08-26 06:33] LABS: #Eosinphils 0.1 thou/uL (0.0-0.7); #Monocytes 0.8 thou/uL (0.11-0.59); #Neutrophils 6.8 thou/uL (1.40-6.50); %Basophils 0.2 % (0.0-1.0); %Eosinophils 1.2 % (0.0-10.0); %Lymphocytes 8.1 % (21.0-51.0); %Monocytes 9.3 % (0.0-10.0); %Neutrophils 79.9 % (42.0-75.0); Hematocrit 25.5 % (36.0-47.0); Hemoglobin 8.2 g/dL (12.0-16.0); Mean Corpuscular HGB CONC 32.2 g/dL (32.0-36.0); Mean Corpuscular Hemoglobin 29.4 pg (27.0-31.0); Mean Corpuscular Volume 91.4 fl (78.0-98.0); Platelet Count 614 10x3/uL (130-400); RBC Distribution Width 14.7 % (11.5-14.5); Red Blood Cell (RBC) Count 2.79 mill/uL (4.20-5.40); White Blood Cell (WBC) Count 8.5 10x3/uL (4.8-10.8)
[2023-08-26] MEDS: Pantoprazole 40 MG VIAL IVP SCH (08:29)
[2023-08-26 09:58] LABS: ALT (SGPT) 26 U/L (8-55); AST (SGOT) 84 U/L (5-34); Albumin 3.2 g/dL (3.4-4.8); Alkaline Phosphatase 136 U/L (40-110); Anion Gap 12 mmol/L (10-20); BUN (Urea Nitrogen) 10 mg/dL (9.8-20.1); Bilirubin, Total 0.6 mg/dL (0.2-1.2); Calc. Creatinine Clearance 113 mL/min (70-130); Calcium 9.1 mg/dL (7.8-10.44); Carbon Dioxide 27 mmol/L (23-31); Chloride 99 mmol/L (98-107); Estimated GFR 90; Glucose 98 mg/dL (80-115); Phosphorus 3.6 mg/dL (2.3-4.7); Protein, Total 7.2 g/dL (5.8-8.1); Sodium 134 mmol/L (136-145)
[2023-08-26] MEDS: Ibuprofen 200 MG TAB PO SCH ×3 (12:32→20:02)
[2023-08-26] MEDS: traMADol HCl 50 MG TAB PO PRN ×2 (12:33→20:04)
[2023-08-26] MEDS: Enoxaparin 40 MG (0.4 mL) SYRINGE SC SCH (20:04)
[2023-08-27] MEDS: traMADol HCl 50 MG TAB PO PRN (01:09)
[2023-08-27] MEDS: Ibuprofen 200 MG TAB PO SCH ×4 (01:09→14:45)
[2023-08-27] MEDS ORDERED: fentaNYL 50 mcg/mL 1 mL Vial SLOW IVP SCH ×2 (03:00→09:45)
[2023-08-27] MEDS: Prochlorperazine 10 MG/2 ML VIAL IVP PRN ×2 (03:04→19:55)
[2023-08-27] MEDS ORDERED: Lactated Ringer's 1,000 ML IV SCH (03:45)
[2023-08-27 04:07] LABS: #Eosinphils 0.1 thou/uL (0.0-0.7); #Monocytes 0.7 thou/uL (0.11-0.59); #Neutrophils 8.7 thou/uL (1.40-6.50); %Basophils 0.2 % (0.0-1.0); %Eosinophils 0.8 % (0.0-10.0); %Lymphocytes 4.3 % (21.0-51.0); %Monocytes 7.2 % (0.0-10.0); %Neutrophils 86.2 % (42.0-75.0); Hematocrit 25.4 % (36.0-47.0); Hemoglobin 8.1 g/dL (12.0-16.0); Mean Corpuscular HGB CONC 31.9 g/dL (32.0-36.0); Mean Platelet Volume 9.1 fL (7.4-10.4); Platelet Count 555 10x3/uL (130-400); RBC Distribution Width 13.7 % (11.5-14.5); Red Blood Cell (RBC) Count 2.79 mill/uL (4.20-5.40); White Blood Cell (WBC) Count 10.1 10x3/uL (4.8-10.8)
[2023-08-27 04:30] LABS: Anion Gap 11 mmol/L (10-20); BUN (Urea Nitrogen) 13 mg/dL (9.8-20.1); Calc. Creatinine Clearance 104 mL/min (70-130); Calcium 8.4 mg/dL (7.8-10.44); Carbon Dioxide 29 mmol/L (23-31); Chloride 101 mmol/L (98-107); Estimated GFR 82; Glucose 137 mg/dL (80-115); Phosphorus 3.7 mg/dL (2.3-4.7); Potassium 3.8 mmol/L (3.5-5.1); Sodium 137 mmol/L (136-145)
[2023-08-27] MEDS: Levothyroxine Sodium 88 MCG TAB PO SCH (04:40)
[2023-08-27] MEDS: Metoclopramide HCl 10 MG (2 mL) VIAL IVP SCH ×2 (05:20→16:03)
[2023-08-27] MEDS: Ondansetron PF 4 MG/2 ML Vial IVP PRN ×3 (07:00→18:09)
[2023-08-27] MEDS: Ipratropium Bromide 2.5 ml Neb NEB SCH ×3 (08:03→19:18)
[2023-08-27] MEDS ORDERED: MD-Gastroview 120 ML BOT ONE ×2 (09:38→12:57)
[2023-08-27] MEDS: TYLENOL 500 MG PO SCH ×4 (10:16→20:08)
[2023-08-27] MEDS: Scopolamine 1 mg/72 hour Patch TD SCH (16:03)
[2023-08-27] MEDS: Ketorolac Tromethamine 30 MG (1 mL) VIAL IVP PRN ×2 (17:25→23:47)
[2023-08-27] MEDS: Lactated Ringer's 1,000 ML IV SCH (18:09)
[2023-08-27] MEDS: fentaNYL 50 mcg/mL 1 mL Vial SLOW IVP PRN ×2 (19:54→23:00)
[2023-08-27] MEDS: Enoxaparin 40 MG (0.4 mL) SYRINGE SC SCH (19:58)
[2023-08-27] MEDS: Pantoprazole 40 MG VIAL IVP SCH (20:02)
[2023-08-28] MEDS: Ipratropium Bromide 2.5 ml Neb NEB SCH ×5 (01:46→21:58)
[2023-08-28] MEDS: Lactated Ringer's 1,000 ML IV SCH ×3 (02:31→18:18)
[2023-08-28] MEDS: fentaNYL 50 mcg/mL 1 mL Vial SLOW IVP PRN ×5 (04:50→20:49)
[2023-08-28] MEDS: Prochlorperazine 10 MG/2 ML VIAL IVP PRN ×2 (04:50→16:54)
[2023-08-28] MEDS: Levothyroxine Sodium 88 MCG TAB PO SCH (05:07)
[2023-08-28] MEDS: Ondansetron PF 4 MG/2 ML Vial IVP PRN (06:50)
[2023-08-28] MEDS: Pantoprazole 40 MG VIAL IVP SCH ×2 (06:53→20:48)
[2023-08-28] MEDS: TYLENOL 500 MG PO SCH ×4 (09:29→21:14)
[2023-08-28] MEDS ORDERED: Iopamidol-370 76% 500 ML MDV (1 ML CHARGE) ONE (09:34)
[2023-08-28] MEDS: Ketorolac Tromethamine 30 MG (1 mL) VIAL IVP PRN ×2 (12:20→22:17)
[2023-08-28 12:49] LABS: #Monocytes 0.8 thou/uL (0.11-0.59); #Neutrophils 8.7 thou/uL (1.40-6.50); %Basophils 0.2 % (0.0-1.0); %Eosinophils 0.3 % (0.0-10.0); %Lymphocytes 5.5 % (21.0-51.0); %Monocytes 8.1 % (0.0-10.0); %Neutrophils 85.3 % (42.0-75.0); Hematocrit 26.5 % (36.0-47.0); Hemoglobin 8.4 g/dL (12.0-16.0); Mean Corpuscular HGB CONC 31.7 g/dL (32.0-36.0); Mean Corpuscular Volume 91.4 fl (78.0-98.0); Mean Platelet Volume 8.9 fL (7.4-10.4); Platelet Count 585 10x3/uL (130-400); RBC Distribution Width 13.7 % (11.5-14.5); White Blood Cell (WBC) Count 10.2 10x3/uL (4.8-10.8)
[2023-08-28 13:09] LABS: Lactic Acid 0.8 mmol/L (0.5-2.2)
[2023-08-28 13:23] LABS: Anion Gap 15 mmol/L (10-20); BUN (Urea Nitrogen) 12 mg/dL (9.8-20.1); Calcium 8.8 mg/dL (7.8-10.44); Carbon Dioxide 27 mmol/L (23-31); Chloride 100 mmol/L (98-107); Glucose 110 mg/dL (80-115); Magnesium 2.1 mg/dL (1.6-2.6); Phosphorus 3.3 mg/dL (2.3-4.7); Potassium 3.8 mmol/L (3.5-5.1); Sodium 138 mmol/L (136-145)
[2023-08-28] MEDS: Multivitamins, Adult 10 ML, TRACE ELEMENT CONCENTRATE 1 ML in D15W-AA 5% with Lytes 2,0... IV SCH (14:29)
[2023-08-28 15:46] LABS: Calc. Creatinine Clearance 110 mL/min (70-130); Estimated GFR 87
[2023-08-28] MEDS: Enoxaparin 40 MG (0.4 mL) SYRINGE SC SCH (20:48)
[2023-08-29] MEDS: Lactated Ringer's 1,000 ML IV SCH ×3 (02:24→18:40)
[2023-08-29] MEDS: Levothyroxine Sodium 88 MCG TAB PO SCH (04:55)
[2023-08-29] MEDS: Ketorolac Tromethamine 30 MG (1 mL) VIAL IVP PRN ×3 (05:06→17:52)
[2023-08-29] MEDS: Pantoprazole 40 MG VIAL IVP SCH ×2 (09:04→20:15)
[2023-08-29] MEDS: Ipratropium Bromide 2.5 ml Neb NEB SCH (10:30)
[2023-08-29] MEDS: fentaNYL 50 mcg/mL 1 mL Vial SLOW IVP PRN ×2 (10:41→14:40)
[2023-08-29] MEDS: TYLENOL 500 MG PO SCH ×4 (10:44→20:15)
[2023-08-29] MEDS ORDERED: Ipratropium Bromide 2.5 ml Neb NEB PRN (12:45)
[2023-08-29] MEDS: Multivitamins, Adult 10 ML, TRACE ELEMENT CONCENTRATE 1 ML in D15W-AA 5% with Lytes 2,0... IV SCH (14:40)
[2023-08-29] MEDS: Lidocaine 4% Topical Sol 50 ML BOT TOP SCH (17:56)
[2023-08-29] MEDS: Enoxaparin 40 MG (0.4 mL) SYRINGE SC SCH (20:16)
[2023-08-29] MEDS: traMADol HCl 50 MG TAB PO PRN (20:16)
[2023-08-30] MEDS: Ketorolac Tromethamine 30 MG (1 mL) VIAL IVP PRN (03:39)
[2023-08-30] MEDS: Lactated Ringer's 1,000 ML IV SCH ×3 (04:03→15:23)
[2023-08-30] MEDS: Levothyroxine Sodium 88 MCG TAB PO SCH (05:41)
[2023-08-30 06:21] LABS: #Eosinphils 0.1 thou/uL (0.0-0.7); #Neutrophils 7.1 thou/uL (1.40-6.50); %Basophils 0.2 % (0.0-1.0); %Eosinophils 1.4 % (0.0-10.0); %Monocytes 10.9 % (0.0-10.0); %Neutrophils 78.2 % (42.0-75.0); Hematocrit 26.3 % (36.0-47.0); Hemoglobin 8.2 g/dL (12.0-16.0); Mean Corpuscular HGB CONC 31.2 g/dL (32.0-36.0); Mean Corpuscular Hemoglobin 28.2 pg (27.0-31.0); Mean Corpuscular Volume 90.4 fl (78.0-98.0); Mean Platelet Volume 8.8 fL (7.4-10.4); Platelet Count 555 10x3/uL (130-400); RBC Distribution Width 13.5 % (11.5-14.5); Red Blood Cell (RBC) Count 2.91 mill/uL (4.20-5.40); White Blood Cell (WBC) Count 9.1 10x3/uL (4.8-10.8)
[2023-08-30 06:38] LABS: Lactic Acid 1.1 mmol/L (0.5-2.2)
[2023-08-30 06:48] LABS: Anion Gap 9 mmol/L (10-20); BUN (Urea Nitrogen) 13 mg/dL (9.8-20.1); Calc. Creatinine Clearance 131 mL/min (70-130); Calcium 8.1 mg/dL (7.8-10.44); Carbon Dioxide 27 mmol/L (23-31); Chloride 101 mmol/L (98-107); Estimated GFR 96; Glucose 116 mg/dL (80-115); Potassium 3.7 mmol/L (3.5-5.1); Sodium 133 mmol/L (136-145)
[2023-08-30] MEDS: Pantoprazole 40 MG VIAL IVP SCH ×2 (10:00→22:05)
[2023-08-30] MEDS: TYLENOL 500 MG PO SCH ×4 (10:01→22:06)
[2023-08-30] MEDS: traMADol HCl 50 MG TAB PO PRN (10:09)
[2023-08-30] MEDS ORDERED: Metoprolol Tartrate 25 MG TAB PO SCH (10:30)
[2023-08-30] MEDS ORDERED: Piperacillin/Tazobactam 3.375 GM in Sodium Chloride 0.9% 100 ML IVPB SCH (15:00)
[2023-08-30] MEDS: Scopolamine 1 mg/72 hour Patch TD SCH (15:08)
[2023-08-30] MEDS: Multivitamins, Adult 10 ML, TRACE ELEMENT CONCENTRATE 1 ML in D15W-AA 5% with Lytes 2,0... IV SCH (15:09)
[2023-08-30] MEDS: Lidocaine 4% Topical Sol 50 ML BOT TOP SCH (15:22)
[2023-08-30] MEDS: Piperacillin/Tazobactam 3.375 GM in Sodium Chloride 0.9% 100 ML IVPB SCH (18:34)
[2023-08-30] MEDS: Ondansetron PF 4 MG/2 ML Vial IVP PRN (19:26)
[2023-08-30] MEDS: Metoprolol Tartrate 25 MG TAB PO SCH (22:04)
[2023-08-30] MEDS: Enoxaparin 40 MG (0.4 mL) SYRINGE SC SCH (22:05)
[2023-08-31] MEDS: Lactated Ringer's 1,000 ML IV SCH ×2 (03:02→08:23)
[2023-08-31] MEDS: Piperacillin/Tazobactam 3.375 GM in Sodium Chloride 0.9% 100 ML IVPB SCH ×3 (03:03→18:06)
[2023-08-31] MEDS: Ketorolac Tromethamine 30 MG (1 mL) VIAL IVP PRN ×2 (03:18→21:26)
[2023-08-31] MEDS: Levothyroxine Sodium 88 MCG TAB PO SCH (05:25)
[2023-08-31] MEDS: Ondansetron PF 4 MG/2 ML Vial IVP PRN ×3 (06:30→18:12)
[2023-08-31] MEDS: traMADol HCl 50 MG TAB PO PRN ×2 (08:25→15:16)
[2023-08-31] MEDS: TYLENOL 500 MG PO SCH ×4 (08:25→21:27)
[2023-08-31] MEDS: Metoprolol Tartrate 25 MG TAB PO SCH ×2 (08:25→21:27)
[2023-08-31] MEDS: Pantoprazole 40 MG VIAL IVP SCH ×2 (08:25→21:27)
[2023-08-31] MEDS: Multivitamins, Adult 10 ML, TRACE ELEMENT CONCENTRATE 1 ML in D15W-AA 5% with Lytes 2,0... IV SCH (14:39)
[2023-08-31] MEDS: Lidocaine 4% Topical Sol 50 ML BOT TOP SCH (14:46)
[2023-08-31] MEDS: Enoxaparin 40 MG (0.4 mL) SYRINGE SC SCH (21:27)
[2023-09-01] MEDS: Piperacillin/Tazobactam 3.375 GM in Sodium Chloride 0.9% 100 ML IVPB SCH ×3 (04:24→18:43)
[2023-09-01] MEDS: Levothyroxine Sodium 88 MCG TAB PO SCH (05:25)
[2023-09-01] MEDS: Ketorolac Tromethamine 30 MG (1 mL) VIAL IVP PRN ×2 (09:33→15:29)
[2023-09-01] MEDS: Pantoprazole 40 MG VIAL IVP SCH ×2 (09:33→21:09)
[2023-09-01] MEDS: fentaNYL 50 mcg/mL 1 mL Vial SLOW IVP PRN (09:34)
[2023-09-01] MEDS: Saccharomyces boulardii 250 MG CAP PO SCH (09:35)
[2023-09-01] MEDS: Metoprolol Tartrate 25 MG TAB PO SCH ×2 (09:35→21:09)
[2023-09-01] MEDS: TYLENOL 500 MG PO SCH ×4 (09:36→21:09)
[2023-09-01] MEDS: Multivitamins, Adult 10 ML, TRACE ELEMENT CONCENTRATE 1 ML in D15W-AA 5% with Lytes 2,0... IV SCH (14:05)
[2023-09-01] MEDS ORDERED: Ketorolac Tromethamine 30 MG (1 mL) VIAL IVP PRN (17:55)
[2023-09-01] MEDS: Lidocaine 4% Topical Sol 50 ML BOT TOP SCH (18:44)
[2023-09-01] MEDS: Enoxaparin 40 MG (0.4 mL) SYRINGE SC SCH (21:09)
[2023-09-02] MEDS: Piperacillin/Tazobactam 3.375 GM in Sodium Chloride 0.9% 100 ML IVPB SCH ×3 (03:49→18:38)
[2023-09-02] MEDS: Levothyroxine Sodium 88 MCG TAB PO SCH (05:50)
[2023-09-02] MEDS: fentaNYL 50 mcg/mL 1 mL Vial SLOW IVP PRN ×2 (06:22→14:58)
[2023-09-02 07:23] LABS: Anion Gap 13 mmol/L (10-20); BUN (Urea Nitrogen) 12 mg/dL (9.8-20.1); Calc. Creatinine Clearance 116 mL/min (70-130); Calcium 8.5 mg/dL (7.8-10.44); Carbon Dioxide 24 mmol/L (23-31); Chloride 103 mmol/L (98-107); Estimated GFR 93; Glucose 104 mg/dL (80-115); Potassium 4.6 mmol/L (3.5-5.1); Sodium 135 mmol/L (136-145)
[2023-09-02] MEDS: Saccharomyces boulardii 250 MG CAP PO SCH (09:09)
[2023-09-02] MEDS: TYLENOL 500 MG PO SCH ×4 (09:09→18:38)
[2023-09-02] MEDS: Metoprolol Tartrate 25 MG TAB PO SCH ×2 (09:09→22:07)
[2023-09-02] MEDS: Pantoprazole 40 MG VIAL IVP SCH ×2 (09:10→22:07)
[2023-09-02] MEDS: Ondansetron PF 4 MG/2 ML Vial IVP PRN (10:58)
[2023-09-02] MEDS ORDERED: Ketorolac Tromethamine 30 MG (1 mL) VIAL IVP PRN (13:32)
[2023-09-02] MEDS ORDERED: Mag-Al Plus 1200/1200/120 MG (30 mL) UDCUP PO PRN (13:39)
[2023-09-02] MEDS ORDERED: Ibuprofen 200 MG TAB PO PRN (13:44)
[2023-09-02] MEDS: Multivitamins, Adult 10 ML, TRACE ELEMENT CONCENTRATE 1 ML in D15W-AA 5% with Lytes 2,0... IV SCH (14:59)
[2023-09-02] MEDS: Lidocaine 4% Topical Sol 50 ML BOT TOP SCH (17:20)
[2023-09-02] MEDS: Enoxaparin 40 MG (0.4 mL) SYRINGE SC SCH (22:07)
[2023-09-03] MEDS: TYLENOL 500 MG PO SCH ×5 (02:02→22:50)
[2023-09-03] MEDS: Piperacillin/Tazobactam 3.375 GM in Sodium Chloride 0.9% 100 ML IVPB SCH ×3 (04:09→19:58)
[2023-09-03] MEDS: Levothyroxine Sodium 88 MCG TAB PO SCH (05:25)
[2023-09-03 06:36] LABS: #Eosinphils 0.1 thou/uL (0.0-0.7); #Neutrophils 5.6 thou/uL (1.40-6.50); %Basophils 0.4 % (0.0-1.0); %Eosinophils 1.2 % (0.0-10.0); %Lymphocytes 10.9 % (21.0-51.0); %Monocytes 12.7 % (0.0-10.0); %Neutrophils 73.7 % (42.0-75.0); Hematocrit 26.2 % (36.0-47.0); Hemoglobin 8.5 g/dL (12.0-16.0); Mean Corpuscular HGB CONC 32.4 g/dL (32.0-36.0); Mean Corpuscular Hemoglobin 29.4 pg (27.0-31.0); Mean Corpuscular Volume 90.7 fl (78.0-98.0); Mean Platelet Volume 9.3 fL (7.4-10.4); Platelet Count 503 10x3/uL (130-400); RBC Distribution Width 13.6 % (11.5-14.5); Red Blood Cell (RBC) Count 2.89 mill/uL (4.20-5.40); White Blood Cell (WBC) Count 7.5 10x3/uL (4.8-10.8)
[2023-09-03 07:06] LABS: ALT (SGPT) 19 U/L (8-55); AST (SGOT) 29 U/L (5-34); Albumin 2.7 g/dL (3.4-4.8); Alkaline Phosphatase 69 U/L (40-110); Anion Gap 12 mmol/L (10-20); BUN (Urea Nitrogen) 12 mg/dL (9.8-20.1); Bilirubin, Total 0.3 mg/dL (0.2-1.2); Calc. Creatinine Clearance 119 mL/min (70-130); Calcium 8.4 mg/dL (7.8-10.44); Carbon Dioxide 24 mmol/L (23-31); Chloride 103 mmol/L (98-107); Estimated GFR 94; Globulin 3.6 g/dL (2.4-3.5); Glucose 100 mg/dL (80-115); Potassium 4.2 mmol/L (3.5-5.1); Protein, Total 6.3 g/dL (5.8-8.1); Sodium 135 mmol/L (136-145)
[2023-09-03] MEDS: Metoprolol Tartrate 25 MG TAB PO SCH ×2 (09:24→20:01)
[2023-09-03] MEDS: Saccharomyces boulardii 250 MG CAP PO SCH (09:26)
[2023-09-03] MEDS: Pantoprazole 40 MG VIAL IVP SCH ×2 (09:28→20:01)
[2023-09-03] MEDS: fentaNYL 50 mcg/mL 1 mL Vial SLOW IVP PRN (11:41)
[2023-09-03] MEDS: Lidocaine 4% Topical Sol 50 ML BOT TOP SCH (19:43)
[2023-09-03] MEDS: Enoxaparin 40 MG (0.4 mL) SYRINGE SC SCH (20:00)
[2023-09-04] MEDS: Piperacillin/Tazobactam 3.375 GM in Sodium Chloride 0.9% 100 ML IVPB SCH ×2 (02:24→11:03)
[2023-09-04] MEDS: fentaNYL 50 mcg/mL 1 mL Vial SLOW IVP PRN (02:24)
[2023-09-04] MEDS: Levothyroxine Sodium 88 MCG TAB PO SCH (05:36)
[2023-09-04 06:37] LABS: #Eosinphils 0.1 thou/uL (0.0-0.7); #Monocytes 0.7 thou/uL (0.11-0.59); #Neutrophils 4.9 thou/uL (1.40-6.50); %Basophils 0.3 % (0.0-1.0); %Eosinophils 0.9 % (0.0-10.0); %Lymphocytes 10.8 % (21.0-51.0); %Neutrophils 76.2 % (42.0-75.0); Hematocrit 25.8 % (36.0-47.0); Hemoglobin 8.1 g/dL (12.0-16.0); Mean Corpuscular HGB CONC 31.4 g/dL (32.0-36.0); Mean Corpuscular Volume 89.3 fl (78.0-98.0); Mean Platelet Volume 9.5 fL (7.4-10.4); Platelet Count 518 10x3/uL (130-400); RBC Distribution Width 13.8 % (11.5-14.5); Red Blood Cell (RBC) Count 2.89 mill/uL (4.20-5.40); White Blood Cell (WBC) Count 6.4 10x3/uL (4.8-10.8)
[2023-09-04 07:45] LABS: Anion Gap 13 mmol/L (10-20); BUN (Urea Nitrogen) 11 mg/dL (9.8-20.1); Calc. Creatinine Clearance 110 mL/min (70-130); Calcium 8.2 mg/dL (7.8-10.44); Carbon Dioxide 22 mmol/L (23-31); Chloride 102 mmol/L (98-107); Estimated GFR 87; Glucose 73 mg/dL (80-115); Magnesium 2.1 mg/dL (1.6-2.6); Phosphorus 3.6 mg/dL (2.3-4.7); Potassium 4.1 mmol/L (3.5-5.1); Sodium 133 mmol/L (136-145)
[2023-09-04] MEDS: Metoprolol Tartrate 25 MG TAB PO SCH (09:15)
[2023-09-04] MEDS: Pantoprazole 40 MG VIAL IVP SCH (09:15)
[2023-09-04] MEDS: Saccharomyces boulardii 250 MG CAP PO SCH (09:15)
[2023-09-04] MEDS: TYLENOL 500 MG PO SCH ×2 (09:19→13:54)
[2023-09-04 13:13] VITALS: BP 109/72; TEMP 98.7
[2023-09-04] MEDS: traMADol HCl 50 MG TAB PO PRN (13:50)
[2023-09-04] MEDS: Lidocaine 4% Topical Sol 50 ML BOT TOP SCH (15:15)
== END 2023-09-04 15:40 | disposition home or self-care (01) | DRG 356 ==
LOC: ERS 01:07 → SJJU 02:30
PROVIDERS: ADMIT Specialist; ATTEND Specialist
PROC: 0DJD8ZZ Inspection of Lower Intestinal Tract, Via Natural or Artificial Opening Endoscopic (ICD-10-PCS; 2023-08-11)
PROC: 0DJD0ZZ Inspection of Lower Intestinal Tract, Open Approach (ICD-10-PCS; principal; 2023-08-14)
PROC: 0D9670Z Drainage of Stomach with Drainage Device, Via Natural or Artificial Opening (ICD-10-PCS; 2023-08-14)
PROC: 3E033XZ Introduction of Vasopressor into Peripheral Vein, Percutaneous Approach (ICD-10-PCS; 2023-08-14)
DX: K91.31 Postprocedural partial intestinal obstruction (principal); E43 Unspecified severe protein-calorie malnutrition; C18.9 Malignant neoplasm of colon, unspecified; I50.32 Chronic diastolic (congestive) heart failure; R18.8 Other ascites; Z82.49 Family history of ischemic heart disease and other diseases of the circulatory system; C54.1 Malignant neoplasm of endometrium; Z68.37 Body mass index [BMI] 37.0-37.9, adult; R13.14 Dysphagia, pharyngoesophageal phase; E27.8 Other specified disorders of adrenal gland; R16.0 Hepatomegaly, not elsewhere classified; K76.0 Fatty (change of) liver, not elsewhere classified; I11.0 Hypertensive heart disease with heart failure; E87.6 Hypokalemia; D35.02 Benign neoplasm of left adrenal gland; E03.9 Hypothyroidism, unspecified; R73.03 Prediabetes; K59.00 Constipation, unspecified; E78.5 Hyperlipidemia, unspecified; K21.9 Gastro-esophageal reflux disease without esophagitis; D64.9 Anemia, unspecified; K44.9 Diaphragmatic hernia without obstruction or gangrene; Z96.651 Presence of right artificial knee joint; Z90.710 Acquired absence of both cervix and uterus; Z98.891 History of uterine scar from previous surgery; Z87.891 Personal history of nicotine dependence; Z88.5 Allergy status to narcotic agent; Z79.82 Long term (current) use of aspirin; Z79.899 Other long term (current) drug therapy
CPT/HCPCS: 36415; 36416; 71045; 74018; 74019; 74022; 74177; 74250; 80048; 80053; 81001; 82310; 83036; 83605; 83735; 84100; 85025; 85610; 85730; 87086; 88112; 88305; 88309; 88341; 88342; 93005; 93010; 94640; 97139; A4314; C1776; C9113; J0171; J0696; J0780; J1100; J1170; J1650; J1885; J2270; J2405; J2543; J2704; J2765; J3010; J3475; J3480; J3490; J7050; J7120; Q0162; Q9963; Q9967; S0020